=== PATIENT | male | born 1955 | race Caucasian/White ===

== ENCOUNTER 2017-02-05 11:32 | Emergency (ER) | payer OTHER ==
[~2017-02-05] VITALS: Ht 167.6 cm; Wt 94.8 kg
[~2017-02-05 11:32] MED LIST: NO MEDS; TERB250T8 PO
--- NOTE | 2017-02-05 11:53 | NUR ---
PATIENT PRESENTS TO ED WITH C/O DIARRHEA W/ BLOOD X 3 DAYS . PT STATES HE HAS ABDOMINAL PAIN. HX OF HEMORRHOIDS AND INGUINAL HERNIA;DENIES N/V/D; SKIN IS PINK/WARM/DRY; AAOX4 WITH EVEN AND STEADY GAIT; LUNGS CLEAR BL; HR EVEN AND REGULAR; PT DENIES ANY FEVER, CP, SOB, OR COUGH AT THIS TIME; PATIENT STATES PAIN OF 8/10 AT THIS TIME;PATIENT POSITIONED FOR COMFORT; HOB ELEVATED; BEDRAILS UP X2; BED DOWN. ER MD MADE AWARE OF PT STATUS.
[2017-02-05 11:54] VITALS: BP 139/86
--- NOTE | 2017-02-05 12:03 | NUR ---
Dr. Lopez evaluating patient at bedside.
[2017-02-05] MEDS ORDERED: ALUMINUM HYD/MAG/SIMETHICONE 30 ML, DICYCLOMINE HCL LIQUID 20 MG, LIDOCAINE VISCOUS 2% ... PO ONE ×3 (12:15)
[2017-02-05] MEDS ORDERED: GLYCOPYRROLATE 0.2 MG/ML VIAL IM ONE (12:15)
[2017-02-05] MEDS ORDERED: KETOROLAC 60 MG/2 ML VIAL IM ONE (12:15)
[2017-02-05] MEDS ORDERED: METOCLOPRAMIDE 10 MG TAB PO ONE (12:15)
[2017-02-05] MEDS ORDERED: GLYCOPYRROLATE 0.2 MG/ML VIAL ONE (12:53)
[2017-02-05 13:15] VITALS: BP 125/77
--- NOTE | 2017-02-05 13:15 | NUR ---
Patient discharged with v/s stable. Written and verbal after care instructions given and explained. Patient alert, oriented and verbalized understanding of instructions. Ambulatory with steady gait. All questions addressed prior to discharge. ID band removed. Patient advised to follow up with PMD. Rx of reglan given. Patient educated on indication of medication including possible reaction and side effects. Opportunity to ask questions provided and answered.
== END 2017-02-05 13:15 | disposition home or self-care (01) ==
LOC: MED 11:32
DX: R10.9 Unspecified abdominal pain (principal); R19.7 Diarrhea, unspecified; K64.4 Residual hemorrhoidal skin tags
CPT/HCPCS: 96372; 99284; J1885; J3490; J8597

== ENCOUNTER 2023-05-05 19:47 | Emergency (ER) | payer MEDICARE, OTHER ==
[~2023-05-05] VITALS: Ht 165.1 cm; Wt 95.3 kg
[2023-05-05 20:33] VITALS: BP 119/73; PULSE 86; RESP 18; TEMP 98; O2SAT 99
[2023-05-05 22:55] VITALS: BP 119/73; PULSE 86; RESP 18; TEMP 98; O2SAT 99
== END 2023-05-05 22:18 | disposition left against medical advice (07) ==
LOC: MED 19:47
DX: M54.50 Low back pain, unspecified (principal); Z53.21 Procedure and treatment not carried out due to patient leaving prior to being seen by health care provider
CPT/HCPCS: 99281